=== PATIENT | female | born 1960 | race Caucasian/White ===

== ENCOUNTER 2020-06-05 09:42 | Outpatient (CLI) | payer MEDICARE, OTHER, SELFPAY ==
--- NOTE | ~2020-06-05 | CT_ITS ---
EXAMINATION: CT chest wo con DATE: 06/05/2020 10:12 INDICATION: Solitary pulmonary nodule TECHNIQUE: Computed tomography (CT) of the chest was performed without intravenous contrast. The dose -length product (DLP) was 65.93 mGy-cm. Automated exposure control and iterative reconstruction techn ique were employed. COMPARISON: 04/25/2019, 04/13/2018 FINDINGS: There are stable pulmonary nodules, the largest of which measures 4 mm in the right lower l obe. No new or suspicious pulmonary nodule is identified. Mild atelectasis is noted. There is no pleu ral effusion or pneumothorax. No pathologically enlarged thoracic lymph nodes are identified. The hea rt size is normal. There is mild thoracic spondylosis. IMPRESSION: 1. Stable pulmonary nodules, most consistent with old granulomatous disease. Reviewed, dictated and finalized at location B.
--- NOTE | ~2020-06-05 | MM_ITS ---
EXAMINATION: MM screening [facility] BI w corin HISTORY: Screening mammogram TECHNIQUE: Craniocaudal and mediolateral oblique 3-D tomosynthesis images were obtained and synthetic 2-D images were generated. CAD analysis was submitted and interpreted. COMPARISON: 04/20/2019, 05/13/2017, 03/09/2015 bilateral digital screening mammogram examinations BREAST PARENCHYMAL COMPOSITION: There are scattered areas of fibroglandular density. FINDINGS: Stable mild fibroglandular asymmetry. There is no evidence of suspicious mass, calcificatio n, or architectural distortion to suggest malignancy in either breast. There has been no suspicious i nterval change. IMPRESSION: 1. No mammographic evidence of malignancy. 2. Recommend routine screening mammography in one year. BI-RADS Category 2: Benign finding(s). Reviewed, dictated and finalized at location A.
== END 2020-06-05 09:43 | disposition home or self-care (01) ==
PROVIDERS: PCP Family Medicine; Visit Provider Family Medicine
DX: Z12.31 Encounter for screening mammogram for malignant neoplasm of breast (principal); R91.8 Other nonspecific abnormal finding of lung field
CPT/HCPCS: 71250; 77063; 77067

== ENCOUNTER 2021-07-12 14:45 | Outpatient (CLI) | payer MEDICARE, OTHER, SELFPAY ==
--- NOTE | ~2021-07-12 | MM_ITS ---
EXAMINATION: MM screening [facility] BI w corin HISTORY: Screening TECHNIQUE: Craniocaudal and mediolateral oblique 3-D tomosynthesis images were obtained and synthetic 2-D images were generated. CAD analysis was submitted and interpreted. COMPARISON: Comparison to multiple prior studies sequentially, with oldest reviewed study dated 12/2012. BREAST PARENCHYMAL COMPOSITION: There are scattered areas of fibroglandular density. FINDINGS: There is no evidence of suspicious mass, calcification, or architectural distortion to sugg est malignancy in either breast. There has been no suspicious interval change. IMPRESSION: 1. No mammographic evidence of malignancy. 2. Recommend routine screening mammography in one year. BI-RADS Category 1: Negative Reviewed, dictated and finalized at location A.
--- NOTE | ~2021-07-12 | XR_ITS ---
EXAMINATION: XR chest 2V DATE: 07/12/2021 15:55 INDICATION: Unspecified dementia without behavioral disturbance. TECHNIQUE: Frontal and lateral views of the chest were obtained. COMPARISON: Chest CT 06/05/2020 FINDINGS: There is no pneumonia, pleural effusion, or pneumothorax. The heart size is normal. IMPRESSION: 1. No acute cardiopulmonary disease. Reviewed, dictated and finalized at location A.
--- NOTE | ~2021-07-12 | MR_ITS ---
EXAMINATION: MR brain/brain stem wo con EXAM DATE: 07/12/2021 16:39 INDICATION: F03.90 - Unspecified dementia without behavioral disturbance. TECHNIQUE: Magnetic resonance imaging (MRI) of the brain/brain stem obtained without contrast. Sagitt al T1, axial diffusion, gradient echo (T2*), T1, T2, FLAIR sequences obtained. Comparison is made to prior examination from 06/14/2019. FINDINGS: There is a punctate old left caudate head lacunar infarction, new compared to previous exam ination. There are no areas of restricted diffusion to suggest acute infarction. There is no acute h emorrhage seen on the T2*, a hemosiderin sensitive sequence. No intraparenchymal brain mass. The kathleen tricles are normal in size. There are no extra-axial collections. Flow voids are seen in the cerebr al arteries on the T2-weighted sequences consistent with their expected patency. The orbits are unre markable. Soft tissue is unremarkable. IMPRESSION: 1. No acute intracranial findings. 2. Punctate old left caudate head lacunar infarction. Reviewed, dictated and finalized at location B.
--- NOTE | ~2021-07-12 | DEXA_ITS ---
Bone Density Report Name: Joanie Dominguez Age: 60 Sex: Female Ethnicity: White Date of : 1960 Indication: postmenopausal; height loss; Referring Provider: Peter Fagan Study: Bone densitometry was performed. Exam Date: July 12, 2021 Accession number: [id number] Bone Density: Region BMD T-score Z-score Classification AP Spine (L1, L2) 0.972 -0.1 1.4 Normal Femoral Neck (Left) 0.778 -0.6 0.7 Normal Total Hip (Left) 0.977 0.3 1.3 Normal Total Hip Bilateral Avg 0.995 0.5 1.5 Normal Femoral Neck (Right) 0.788 -0.6 0.8 Normal Total Hip (Right) 1.011 0.6 1.6 Normal World Health Organization criteria for BMD impression classify patients as: Normal (T-score at or above -1.0), Osteopenia (T-score between -1.0 and -2.5), or Osteoporosis (T-score at or below -2.5). 10-year Fracture Risk: FRAX not reported because: All T-scores for Spine Total, Hip Total, Femoral Neck at or above -1.0 Clinical Information Provided by Patient: Patient maximum height was 64 Menopause Age: 49 Onset of menses at age 12 Number of children 0 Impression: The patient has normal bone mass. Discussion: BONE DENSITY IS ABOVE THE MINIMUM DESIRABLE LEVEL AT ALL SKELETAL SITES TESTED. This patient?s bone mineral density is above the minimum desirable level (T-score -1.0 or better) at all sites measured. The patient should follow a healthful lifestyle (good nutrition with adequate calcium and vitamin D, and appropriate weight-bearing exercise). Follow-Up: Consider repeating this study in 5 years or sooner if there is some new clinical indication. Reported by: MARYELLEN on 07/12/2021 3:11:00 PM. Reviewed, dictated and finalized at location ACielo MOSER
== END 2021-07-12 14:46 | disposition home or self-care (01) ==
PROVIDERS: PCP Family Medicine; Visit Provider Physician Assistant Medical
DX: Z12.31 Encounter for screening mammogram for malignant neoplasm of breast (principal); Z78.0 Asymptomatic menopausal state; F03.90 Unspecified dementia, unspecified severity, without behavioral disturbance, psychotic disturbance, mood disturbance, and anxiety; Z86.73 Personal history of transient ischemic attack (TIA), and cerebral infarction without residual deficits
CPT/HCPCS: 70551; 71046; 77063; 77067; 77080

== ENCOUNTER → 2023-11-10 15:53 | Outpatient (CLI) | payer MEDICARE, OTHER, SELFPAY ==
--- NOTE | ~2023-11-10 | XR_ITS ---
EXAM: XR pelvis 1-2V DATE: 11/10/2023 16:17 HISTORY: M54.42 - Lumbago with sciatica, left side . COMPARISON: None available. FINDINGS: Normal mineralization. No fracture or dislocation. No lytic or blastic lesion. Lumbar dege nerative disc disease. Mild bilateral superior hip joint space narrowing. The SI joints and pubic sym physis are unremarkable. No erosion or periosteal change. Soft tissues within normal limits. IMPRESSION: Mild bilateral hip osteoarthritis. Reviewed, dictated and finalized at location K. INSPECTOR
--- NOTE | ~2023-11-10 | XR_ITS ---
EXAM: XR lumbar spine 2-3V DATE: 11/10/2023 16:17 HISTORY: M54.42 - Lumbago with sciatica, left side . COMPARISON: None available. FINDINGS: 5 nonrib-bearing lumbar-type vertebral bodies. Pedicles intact. Normal vertebral body alig nment. Vertebral body heights preserved. Multilevel disc space height with marginal osteophytosis, se rebeka at L3-4. Multilevel moderate and severe degrees of mid and lower lumbar facet hypertrophy and sc lerosis. No fracture or dislocation. IMPRESSION: Severe degenerative disc disease at L3-4. Multilevel lower lumbar facet arthropathy. Reviewed, dictated and finalized at location K. INSPECTOR IMPRESSION: Severe degenerative disc disease at L3-4. Multilevel lower lumbar f acet arthropathy.
== END ==
PROVIDERS: PCP Chiropractor; Visit Provider Family Medicine
DX: M54.42 Lumbago with sciatica, left side (principal); M51.36 Other intervertebral disc degeneration, lumbar region; M54.41 Lumbago with sciatica, right side; M16.0 Bilateral primary osteoarthritis of hip
CPT/HCPCS: 72100; 72170

== ENCOUNTER 2024-01-13 13:51 | Outpatient (CLI) | payer MEDICARE, OTHER, SELFPAY ==
--- NOTE | ~2024-01-13 | MR_ITS ---
MRI of the lumbar spine Clinical History: Right sciatica Technique: Axial T2-weighted images, and sagittal T1-weighted, T2-weighted, and T2 fat-sat images wer e acquired. Findings: There is no fracture or subluxation of the lumbar spine. Vertebral bodies maintain normal h eight and alignment. No suspicious bone marrow signal abnormality seen. At L1-L2, there is minimal disc bulge. There is moderate facet arthropathy. No central canal stenosis or neural foraminal narrowing seen. At L2-L3, there is minimal disc bulge and moderate facet arthropathy. No central canal stenosis. Ther e is mild bilateral neural foraminal narrowing. L3-L4, there is advanced degenerative disc narrowing. There is mild disc bulge and moderate facet art hropathy. There is mild to moderate central canal stenosis. There is moderate bilateral neural forami nal narrowing. At L4-L5, there is mild degenerative disc narrowing. There is diffuse disc bulge with superimposed ce ntral disc extrusion. There is advanced facet arthropathy. There is severe spinal canal stenosis/thec al sac compression at this level. There is moderate bilateral neural foraminal narrowing, right worse than left. At L5-S1, there is minimal disc bulge and mild facet arthropathy. No central canal stenosis. There is mild bilateral neural foraminal narrowing. Paravertebral soft tissues are unremarkable. Impression: Advanced degenerative spondylosis, worst at L4-L5, as detailed above. Reviewed, dictated and finalized at [facility]. TER SUPERVISOR Impression: Advanced degenerative spondylosis, worst at L4-L5, as detailed above.
== END 2024-01-13 13:52 ==
PROVIDERS: PCP Family Medicine; Referring Provider Chiropractor; Visit Provider Nurse Practitioner Family
DX: M54.41 Lumbago with sciatica, right side (principal); M54.42 Lumbago with sciatica, left side; M47.896 Other spondylosis, lumbar region
CPT/HCPCS: 72148

== ENCOUNTER 2024-04-26 10:36 | Outpatient (CLI) | payer MEDICARE, OTHER, SELFPAY ==
--- NOTE | ~2024-04-26 | XR_ITS ---
SINGLE AP VIEW PELVIS Ordering provider: Emi Dean MD History: . SACROILITIS . Comparison: November 10, 2023 FINDINGS: BONES: No acute fracture or dislocation. HIP JOINT SPACES: Normal. SACROILIAC JOINT SPACES/LUMBAR SPINE: The sacroiliac joint spaces are normal. Mild degenerative coe es of the visualized lower lumbar spine. PUBIC SYMPHYSIS: Normal. SOFT TISSUES: Normal. Calcification in the right side of the pelvis is unchanged. IMPRESSION: No acute osseous abnormality pelvis. Reviewed, dictated and finalized at location A.
== END 2024-04-26 10:37 ==
PROVIDERS: PCP Physical Medicine & Rehabilitation Pain Medicine; Visit Provider Physical Medicine & Rehabilitation Pain Medicine
DX: M46.1 Sacroiliitis, not elsewhere classified (principal)
CPT/HCPCS: 72190

== ENCOUNTER 2025-04-12 10:28 | Outpatient (CLI) | payer MEDICARE, OTHER, SELFPAY ==
--- NOTE | ~2025-04-12 | MM_ITS ---
EXAMINATION: MM screening [facility] BI w corin HISTORY: Screening TECHNIQUE: Craniocaudal and mediolateral oblique 3-D tomosynthesis images were obtained and synthetic 2-D images were generated. CAD analysis was submitted and interpreted. COMPARISON: 07/12/2021 through 05/10/2013 BREAST PARENCHYMAL COMPOSITION: Not dense: There are scattered areas of fibroglandular density. FINDINGS: There is no evidence of suspicious mass, calcification, or architectural distortion to sug gest malignancy in either breast. There has been no suspicious interval change. IMPRESSION: 1. No mammographic evidence of malignancy. 2. Recommend routine screening mammography in one year. BI-RADS Category 1: Negative Reviewed, dictated and finalized at location B.
--- OUTSIDE RECORDS SUMMARY | 2025-04-12 10:33 | XMS_ITS | Clinical Summary ---
[facility] Address [address] Attn: Epic Prelude ADT LISA GARCÍA [id number] Care Team Providers Care Cage Loader Name Role Phone Unavailable Primary Care Provider Unavailabl e Allergies No known active allergies Medications meclizine (ANTIVERT) 12.5 mg tablet Take 1 Tablet (12.5 mg) by mouth 3 times daily as needed for dizziness. 30 Tablet 2 3:58 PM CDT 07/24/20 22 Active ketorolac tromethamine (ACULAR) 0.5 % solution Instill 1 drop into the surgical eye 4 times per day starting 2 days prior to surgery, continuing for 2 weeks after surgery. 5 mL 1 3 10:35 AM MANAGER 11/22/19 23 Active ofloxacin (OCUFLOX) 0.3 % solution Instill 1 drop into the surgical eye 3 times per day starting 2 days prior to surgery, continuing for 1 week after surgery. 5 mL 1 3 10:35 AM MANAGER 11/22/19 23 Active prednisoLONE acetate (PRED FORTE) 1 % suspension Instill 1 drop into the surgical eye 3 times per day starting after surgery, continuing for 3 weeks 5 mL 1 3 10:35 AM MANAGER 11/22/19 23 Active amLODIPine (NORVASC) 5 mg tablet Take 1 Tablet (5 mg) by mouth daily. 90 Tablet 3 3 5:51 PM CDT 04/07/20 23 Active famotidine (PEPCID) 40 mg tablet Take 1 Tablet (40 mg) by mouth daily at bedtime. 90 Tablet 3 3 7:32 PM CDT 05/28/20 23 Active pantoprazole (PROTONIX) 40 mg Tablet, Delayed Release (E.C.) TAKE ONE TABLET BY MOUTH EVERY MORNING 90 Tablet 1 3 3:11 PM MANAGER 07/06/20 23 Active propranoloL (INDERAL) 20 mg tablet Take 1 Tablet (20 mg) by mouth every 12 hours. 60 Tablet 2 3 2:50 PM MANAGER 10/28/20 23 Active propranoloL (INDERAL LA) 60 mg Long Acting 24 hour capsule Take 1 Capsule (60 mg) by mouth daily. 90 Capsule 4 3:32 PM MANAGER 11/27/19 24 Active LORazepam (ATIVAN) 1 mg tablet LEONOR 1 TABLET BY MOUTH 1 HOUR PRIOR TO MRI; MAY REPEAT 15-30 MINUTES BEFORE MRI 5 Tablet 4 2:00 PM MANAGER 01/05/20 24 Active predniSONE (DELTASONE) 50 mg tablet Take 1 Tablet (50 mg) by mouth daily. 5 Tablet 4 2:00 PM MANAGER 01/05/20 24 Active tiZANidine (ZANAFLEX) 4 mg Tablet Take 1 Tablet (4 mg) by mouth 2 times daily as needed. 60 Tablet 4 7:05 PM CDT 03/07/20 24 Active amoxicillin (AMOXIL) 500 mg capsule Take 1 capsule by mouth every 12 hours 30 Capsule 4 4:45 PM CDT 03/28/20 24 Active hydrocortisone (PROCTOZONE-HC) 2.5 % cream with perineal applicator APPLY RECTALLY 2-3 TIMES DAILY NEEDED FOR PAIN. 28 Gram 1 4 5:35 PM [facility] 09/21/20 24 Active sulfacetamide (BLEPH-10) 10 % solution Administer 2 Drops in both eyes every 4 hours. 15 mL 1 5 5:59 PM MANAGER 11/10/19 25 Active tobramycin (TOBREX) 0.3 % solution Administer 1 Drop in both eyes every 4 hours. 5 mL 1 5 12:31 PM MANAGER 11/11/19 25 Active methylPREDNISolo ne (MEDROL DOSPACK) 4 mg Tablets, Dose Pack Take as directed on package 21 Each 5 5:34 PM MANAGER 11/14/19 25 Active simvastatin (ZOCOR) 10 mg tablet TAKE ONE TABLET BY MOUTH ONCE DAILY 90 Tablet 1 5 1:23 PM CDT 11/22/19 25 Active zolpidem (AMBIEN) 10 mg tablet Take 1 tablet by mouth every night as needed for sleep 30 Tablet 5 5 10:14 AM MANAGER 11/22/19 25 Active cetirizine (ZyrTEC) 10 mg tablet Take 1 Tablet (10 mg) by mouth 1 time daily as needed for allergy symptoms 90 Tablet 1 5 11:24 AM CDT 12/27/19 25 Active pantoprazole (PROTONIX) 40 mg Tablet, Delayed Release (E.C.) TAKE ONE TABLET BY MOUTH EVERY MORNING 90 Tablet 1 5 2:01 PM MANAGER 01/06/20 25 Active hydrocortisone (PROCTOZONE-HC) 2.5 % cream with perineal applicator APPLY RECTALLY 2-3 TIMES DAILY NEEDED FOR PAIN. 28 Gram 1 5 4:18 PM CDT 01/21/20 25 Active propranoloL (INDERAL LA) 60 mg Long Acting 24 hour capsule Take 1 Capsule (60 mg) by mouth daily. 90 Capsule 1 5 4:31 PM CDT 03/03/20 25 Active meloxicam (MOBIC) 7.5 mg tablet Take 2 Tablets (15 mg) by mouth daily. 180 Tablet 1 5 11:24 AM CDT 04/05/20 25 Active meloxicam (MOBIC) 7.5 mg tablet Take 1 Tablet (7.5 mg) by mouth daily. 90 Tablet 1 5 1:12 PM CDT 09/30/20 24 025 Discontinued Encounters Date Type Department Care Team Description 04/04/2025 External Device Data STL ABSTRACTION Provider, Abstract 03/29/2025 External Device Data ST[facility] ABSTRACTION Provider, Abstract 03/28/2025 External Device Data ST[facility] ABSTRACTION Provider, Abstract 01/25/2025 External Device Data [facility] ABSTRACTION Provider, Abstract 01/17/2025 External Device Data [facility] ABSTRACTION Provider, Abstract 01/17/2025 External Device Data ST[facility] ABSTRACTION Provider, Abstract 01/14/2025 External Device Data ST[facility] ABSTRACTION Provider, Abstract 01/13/2025 External Device Data STL ABSTRACTION Provider, Abstract 01/11/2025 External Device Data STL ABSTRACTION Provider, Abstract from Last 3 Months Social History Tobacco Use Types Packs/Day Years Used Date Smoking Tobacco: Never Assessed Comments Unknown Sex and Gender Information Value Date Recorded Sex Assigned at Not on file Legal Sex Female 3:29 AM MANAGER Gender Identity Not on file Sexual Orientation Not on file Plan of Treatment Health Maintenance Due Date Last Done Comments DTAP/TDAP/TD VACCINES (1 - Tdap) 1978 BREAST CANCER SCREENING 1999 COLORECTAL SCREENING 2004 Colorectal Cancer Screening 2004 FIT-DNA Q 3 years 2004 FIT/FOBT Q 1 year 2004 Flex Sig/CT Colonography Q 5 years 2004 PNEUMOCOCCAL VACCINE 50+ YEARS (1 of 1 - PCV) 12/12/19 10 ZOSTER VACCINE (1 of 2) 2009 INFLUENZA VACCINE (#1) 2024 OSTEOPOROSIS SCREENING 2024 RSV VACCINE (60+ or ) (1 - 1-dose 75+ series) 2034 Insurance RX [employer] (INTERNAL) [facility]
--- OUTSIDE RECORDS SUMMARY | 2025-04-12 10:33 | XMS_ITS | Encounter Summary ---
Author Organization [employer] Address [address] [place] [address] Care Team Providers Care High Court Justice Name Role Phone Unavailable Primary Care Provider Unavailabl e Encounter Details Date Type Department Care Team (Latest Contact Info) Description 09/13/1999 Outpatient Historical HIS LAB,ADMIT 2L (Excluded Provider) [place] [address] [address] [place], [place] [id number] Depressive disorder, not elsewhere classified (Primary Dx) Social History Tobacco Use Types Packs/Day Years Used Date Smoking Tobacco: Never Assessed Comments Unknown Sex and Gender Information Value Date Recorded Sex Assigned at Not on file Legal Sex Female 3:29 AM RISK CONTROL MANAGER Gender Identity Not on file Sexual Orientation Not on file documented as of this encounter Plan of Treatment Not on file documented as of this encounter Visit Diagnoses Diagnosis Depressive disorder, not elsewhere classified- Primary documented in this encounter
--- OUTSIDE RECORDS SUMMARY | 2025-04-12 10:33 | XMS_ITS | Encounter Summary ---
Author Organization [employer] Address [address] [place] [address] Care Team Providers Care Cattle Producers Name Role Phone Unavailable Primary Care Provider Unavailabl e Encounter Details Date Type Department Care Team (Late st Contact Info) Description 09/13/1999 Outpatient Historical Division of Neurology [address] [address] (Excluded Provider) [place] [address] [facility] [address] [place] [address] Social History Tobacco Use Types Packs/Day Years Used Date Smoking Tobacco: Never Assessed Comments Unknown Sex and Gender Information Value Date Recorded Sex Assigned at Not on file Legal Sex Female 3:29 AM CHEMICAL DETECTION EXPERT Gender Identity Not on file Sexual Orientation Not on file documented as of this encounter Plan of Treatment Not on file documented as of this encounter Visit Diagnoses Not on filedocumented in this encounter
--- OUTSIDE RECORDS SUMMARY | 2025-04-12 10:33 | XMS_ITS | Encounter Summary ---
Author Organization [employer] Address [address] [place] [address] Care Team Providers Care Civil Rights Investigator Name Role Phone Unavailable Primary Care Provider Unavailabl e Encounter Details Date Type Department Care Team (Late st Contact Info) Description 10/16/1999 Outpatient Historical Division of Neurology [address] [address] (Excluded Provider) [place] [address] [facility] [address] [place] [address] Social History Tobacco Use Types Packs/Day Years Used Date Smoking Tobacco: Never Assessed Comments Unknown Sex and Gender Information Value Date Recorded Sex Assigned at Not on file Legal Sex Female 3:29 AM TIME CLOCK INSPECTOR Gender Identity Not on file Sexual Orientation Not on file documented as of this encounter Plan of Treatment Not on file documented as of this encounter Visit Diagnoses Not on filedocumented in this encounter
--- OUTSIDE RECORDS SUMMARY | 2025-04-12 10:33 | XMS_ITS | Encounter Summary ---
Author Organization [employer] Address [address] [place] [address] Care Team Providers Care Research Fellow Name Role Phone Unavailable Primary Care Provider Unavailabl e Encounter Details Date Type Department Care Team (Late st Contact Info) Description 11/20/1999 Outpatient Historical Division [facility]rology [address] [address] (Excluded Provider) [place] [address] [facility] [address] [place] [address] Social History Tobacco Use Types Packs/Day Years Used Date Smoking Tobacco: Never Assessed Comments Unknown Sex and Gender Information Value Date Recorded Sex Assigned at Not on file Legal Sex Female 3:29 AM LINOLEUM FLOOR LAYER Gender Identity Not on file Sexual Orientation Not on file documented as of this encounter Plan of Treatment Not on file documented as of this encounter Visit Diagnoses Not on filedocumented in this encounter
== END 2025-04-12 10:29 | disposition home or self-care (01) ==
LOC: ANHIMG 10:30
PROVIDERS: PCP Family Medicine; Visit Provider Family Medicine
DX: Z12.31 Encounter for screening mammogram for malignant neoplasm of breast (principal)
CPT/HCPCS: 77063; 77067

== ENCOUNTER 2025-05-18 09:52 | Outpatient (CLI) | payer MEDICARE, OTHER, SELFPAY ==
--- NOTE | ~2025-05-18 | NM_ITS ---
EXAMINATION: NM dieter stress w perfusion DATE: 05/18/2025 12:03 INDICATION: Shortness of breath TECHNIQUE: Rest images were obtained following intravenous administration of 9.4 mCi Tc99m tetrofosmi n (Myoview). The patient was infused intravenously with Lexiscan (Regadenoson). Then, 28.5 mCi Tc99m tetrofosmin (Myoview) was administered intravenously, and stress images were obtained. Data was recon structed into short axis and horizontal and vertical long axis SPECT images. Gated SPECT images were also obtained. COMPARISON: None. FINDINGS: There is no definite reversible or fixed perfusion abnormality to suggest ischemia or infar ction. There is normal left ventricular chamber size, wall motion and ejection fraction. Left ventr icular ejection fraction measures 63%. IMPRESSION: 1. Normal myocardial perfusion at rest and during stress. 2. Left ventricular ejection fraction measuring 63%. Reviewed, dictated and finalized at location A.
--- OUTSIDE RECORDS SUMMARY | 2025-05-18 09:57 | XMS_ITS | Encounter Summary ---
Author Organization [facility] Address [address] [place] [address] Care Team Providers Care Rn Paralegal Name Role Phone Unavailable Primary Care Provider Unavailabl e Encounter Details Date Type Department Care Team (Late st Contact Info) Description 10/16/1999 Outpatient Historical Division of [facility]rology [address] [address] (Excluded Provider) [place] [address] [facility] [address] [place] [address] Social History Tobacco Use Types Packs/Day Years Used Date Smoking Tobacco: Never Assessed Comments Unknown Sex and Gender Information Value Date Recorded Sex Assigned at Not on file Legal Sex Female 3:29 AM LEATHER SPONGER Gender Identity Not on file Sexual Orientation Not on file documented as of this encounter Plan of Treatment Not on file documented as of this encounter Visit Diagnoses Not on filedocumented in this encounter
--- OUTSIDE RECORDS SUMMARY | 2025-05-18 09:57 | XMS_ITS | Encounter Summary ---
Author Organization [employer] Address [address] [place] [address] Care Team Providers Care Cream Maker Name Role Phone Unavailable Primary Care Provider Unavailabl e Encounter Details Date Type Department Care Team (Late st Contact Info) Description 09/13/1999 Outpatient Historical Division of Neurology [address] [address] (Excluded [place] [address] [facility] [address] [place] [address] Social History Tobacco Use Types Packs/Day Years Used Date Smoking Tobacco: Never Assessed Comments Unknown Sex and Gender Information Value Date Recorded Sex Assigned at Not on file Legal Sex Female 3:29 AM ANGLE SHEARER Gender Identity Not on file Sexual Orientation Not on file documented as of this encounter Plan of Treatment Not on file documented as of this encounter Visit Diagnoses Not on filedocumented in this encounter
--- OUTSIDE RECORDS SUMMARY | 2025-05-18 09:57 | XMS_ITS | Encounter Summary ---
Author Organization [employer] Address [address] [place] [address] Care Team Providers Care Wellhead Pumper Name Role Phone Unavailable Primary Care Provider Unavailabl e Encounter Details Date Type Department Care Team (Latest Contact Info) Description 09/13/1999 Outpatient Historical HIS LAB,ADMIT 2L (Excluded Provider) [place] [address] [facility] [address] [place], [place] [phone] Depressive disorder, not elsewhere classified (Primary Dx) Social History Tobacco Use Types Packs/Day Years Used Date Smoking Tobacco: Never Assessed Comments Unknown Sex and Gender Information Value Date Recorded Sex Assigned at Not on file Legal Sex Female 3:29 AM RESOURCING CONSULTANT Gender Identity Not on file Sexual Orientation Not on file documented as of this encounter Plan of Treatment Not on file documented as of this encounter Visit Diagnoses Diagnosis Depressive disorder, not elsewhere classified- Primary documented in this encounter
--- OUTSIDE RECORDS SUMMARY | 2025-05-18 09:57 | XMS_ITS | Encounter Summary ---
Author Organization [employer] Address [address] [place] [address] Care Team Providers Care Back Winder Name Role Phone Unavailable Primary Care Provider Unavailabl e Encounter Details Date Type Department Care Team (Late st Contact Info) Description 11/20/1999 Outpatient [facility] [address] [facility] [address] (Excluded Provider) [place] [address] [facility] [address] [place] [address] Social History Tobacco Use Types Packs/Day Years Used Date Smoking Tobacco: Never Assessed Comments Unknown Sex and Gender Information Value Date Recorded Sex Assigned at Not on file Legal Sex Female 3:29 AM DATA ENTRY REPRESENTATIVE Gender Identity Not on file Sexual Orientation Not on file documented as of this encounter Plan of Treatment Not on file documented as of this encounter Visit Diagnoses Not on filedocumented in this encounter
--- OUTSIDE RECORDS SUMMARY | 2025-05-18 09:57 | XMS_ITS | Clinical Summary ---
[facility] Organization [facility] Address [address] [facility] Attn: Epic Prelude ADT LISA GARCÍA [id number] Care Team Providers Care Family Readiness Support Assistant Name Role Phone Unavailable Primary Care Provider Unavailabl e Allergies No known active allergies Medications meclizine (ANTIVERT) 12.5 mg tablet Take 1 Tablet (12.5 mg) by mouth 3 times daily as needed for dizziness. 30 Tablet 07/24/2022 3:58 PM CDT 2 Active ketorolac tromethamine (ACULAR) 0.5 % solution Instill 1 drop into the surgical eye 4 times per day starting 2 days prior to surgery, continuing for 2 weeks after surgery. 5 mL 1 11/25/2022 10:35 AM PUMPER HELPER 3 Active ofloxacin (OCUFLOX) 0.3 % solution Instill 1 drop into the surgical eye 3 times per day starting 2 days prior to surgery, continuing for 1 week after surgery. 5 mL 1 11/25/2022 10:35 AM PUMPER HELPER 3 Active prednisoLONE acetate (PRED FORTE) 1 % suspension Instill 1 drop into the surgical eye 3 times per day starting after surgery, continuing for 3 weeks 5 mL 1 11/25/2022 10:35 AM PUMPER HELPER 3 Active amLODIPine (NORVASC) 5 mg tablet Take 1 Tablet (5 mg) by mouth daily. 90 Tablet 3 04/07/2023 5:51 PM CDT 3 Active famotidine (PEPCID) 40 mg tablet Take 1 Tablet (40 mg) by mouth daily at bedtime. 90 Tablet 3 05/29/2023 7:32 PM CDT 3 Active pantoprazole (PROTONIX) 40 mg Tablet, Delayed Release (E.C.) TAKE ONE TABLET BY MOUTH EVERY MORNING 90 Tablet 1 10/05/2023 3:11 PM PUMPER HELPER 3 Active propranoloL (INDERAL) 20 mg tablet Take 1 Tablet (20 mg) by mouth every 12 hours. 60 Tablet 2 10/28/2023 2:50 PM PUMPER HELPER 3 Active propranoloL (INDERAL LA) 60 mg Long Acting 24 hour capsule Take 1 Capsule (60 mg) by mouth daily. 90 Capsule 11/27/2023 3:32 PM PUMPER HELPER 4 Active LORazepam (ATIVAN) 1 mg tablet LEONOR 1 TABLET BY MOUTH 1 HOUR PRIOR TO MRI; MAY REPEAT 15-30 MINUTES BEFORE MRI 5 Tablet 01/06/2024 2:00 PM PUMPER HELPER 4 Active predniSONE (DELTASONE) 50 mg tablet Take 1 Tablet (50 mg) by mouth daily. 5 Tablet 01/06/2024 2:00 PM PUMPER HELPER 4 Active tiZANidine (ZANAFLEX) 4 mg Tablet Take 1 Tablet (4 mg) by mouth 2 times daily as needed. 60 Tablet 03/09/2024 7:05 PM CDT 4 Active amoxicillin (AMOXIL) 500 mg capsule Take 1 capsule by mouth every 12 hours 30 Capsule 03/28/2024 4:45 PM CDT 4 Active hydrocortisone (PROCTOZONE-HC) 2.5 % cream with perineal applicator APPLY RECTALLY 2-3 TIMES DAILY NEEDED FOR PAIN. 28 Gram 1 09/21/2024 5:35 PM PUMPER HELPER 4 Active sulfacetamide (BLEPH-10) 10 % solution Administer 2 Drops in both eyes every 4 hours. 15 mL 1 11/10/2024 5:59 PM PUMPER HELPER 5 Active tobramycin (TOBREX) 0.3 % solution Administer 1 Drop in both eyes every 4 hours. 5 mL 1 11/12/2024 12:31 PM PUMPER HELPER 5 Active methylPREDNISolon e (MEDROL DOSPACK) 4 mg Tablets, Dose Pack Take as directed on package 21 Each 11/15/2024 5:34 PM PUMPER HELPER 5 Active simvastatin (ZOCOR) 10 mg tablet TAKE ONE TABLET BY MOUTH ONCE DAILY 90 Tablet 1 02/22/2025 1:23 PM CDT 5 Active zolpidem (AMBIEN) 10 mg tablet Take 1 tablet by mouth every night as needed for sleep 30 Tablet 5 11/23/2024 10:14 AM PUMPER HELPER 5 Active cetirizine (ZyrTEC) 10 mg tablet Take 1 Tablet (10 mg) by mouth 1 time daily as needed for allergy symptoms 90 Tablet 1 04/05/2025 11:24 AM CDT 5 Active pantoprazole (PROTONIX) 40 mg Tablet, Delayed Release (E.C.) TAKE ONE TABLET BY MOUTH EVERY MORNING 90 Tablet 1 04/12/2025 12:54 PM CDT 5 Active hydrocortisone (PROCTOZONE-HC) 2.5 % cream with perineal applicator APPLY RECTALLY 2-3 TIMES DAILY NEEDED FOR PAIN. 28 Gram 1 01/20/2025 4:18 PM CDT 5 Active propranoloL (INDERAL LA) 60 mg Long Acting 24 hour capsule Take 1 Capsule (60 mg) by mouth daily. 90 Capsule 1 03/07/2025 4:31 PM CDT 5 Active meloxicam (MOBIC) 7.5 mg tablet Take 2 Tablets (15 mg) by mouth daily. 180 Tablet 1 04/05/2025 11:24 AM CDT 5 Active albuterol sulfate HFA 90 mcg/actuation aerosol inhaler Take 2 Puffs by inhalation every 4 hours as needed for shortness of breath or wheezing 8.5 Gram 2 05/01/2025 1:21 PM CDT 5 Active tiZANidine (ZANAFLEX) 4 mg Capsule Take 1 Capsule (4 mg) by mouth 2 times daily as needed for muscle spasticity. 60 Capsule 05/01/2025 1:21 PM CDT 5 Active predniSONE (DELTASONE) 50 mg tablet Take 1 Tablet (50 mg) by mouth daily. 7 Tablet 05/01/2025 1:21 PM CDT 5 Active Encounters Date Type Department Care Team Description 05/02/2025 External Device Data [facility] ABSTRACTION Provider, Abstract 05/02/2025 External Device Data [facility] ABSTRACTION Provider, Abstract 04/04/2025 External Device Data [facility] ABSTRACTION Provider, Abstract 03/29/2025 External Device Data [facility] ABSTRACTION Provider, Abstract 03/28/2025 External Device Data [facility] ABSTRACTION Provider, Abstract from Last 3 Months Social History Tobacco Use Types Packs/Day Years Used Date Smoking Tobacco: Never Assessed Comments Unknown Sex and Gender Information Value Date Recorded Sex Assigned at Not on file Legal Sex Female 3:29 AM PUMPER HELPER Gender Identity Not on file Sexual Orientation [...] 10 ZOSTER VACCINE (1 of 2) 2009 OSTEOPOROSIS SCREENING 2024 INFLUENZA VACCINE (#1) 2025 RSV VACCINE (60+ or ) (1 - 1-dose 75+ series) 2034 Insurance RX [employer] ([employer]NAL) [facility]
--- OUTSIDE RECORDS SUMMARY | 2025-05-18 09:57 | XMS_ITS | Clinical Summary ---
Author Organization [facility] Address [address] [place] [id number] Care Team Providers Care Tool Die Maker Name Role Phone Jamal Cano MD Primary Care Provider [phone] Allergies No known active allergies Medications zolpidem 10 MG tablet nightly as needed. 10/07/2021 Active venlafaxine XR 37.5 MG 24 hr capsule Take 37.5 mg by mouth daily. Active pantoprazole EC 40 MG tablet Take 40 mg by mouth daily. Active felodipine ER 5 MG 24 hr tablet Take 5 mg by mouth daily. Active simvastatin 10 MG tablet Take 10 mg by mouth nightly at bedtime. Active Active Problems No known active problems Immunizations Immunization Administration Dates Next Due PFIZER COVID-19 (ORIGINAL FO RMULATION, PURPLE CAP) mRNA, LNP-S, PF, 30 MCG/0.3 ML DOSE 10/28/2021,02/09/2021,01/18/2021 Family History Medical History Relation Comments Heart Disease Father Relation Status Comments Father Social History Tobacco Use Types Packs/Day Years Used Date Smoking Tobacco: Former Smokeless Tobacco: Never Alcohol Use Standard Drinks/Week Comments Never 0 (1 standard drink = 0.6 oz pur e alcohol) Comments No Sex and Gender Information Value Date Recorded Sex Assigned at Not on file Legal Sex Female 8:47 AM ORE TESTER Gender Identity Not on file Sexual Orientation Not on file Last Filed Vital Signs Vital Sign Reading Time Taken Comments Blood Pressure 117/76 11/27/2021 11:35 AM ORE TESTER Pulse 66 11/27/2021 11:35 AM ORE TESTER Temperature 36.3 C (97.3 F) 11/27/2021 11:27 AM ORE TESTER Respiratory Rate 18 11/27/2021 11:35 AM ORE TESTER Oxygen Saturation 99% 11/27/2021 11:35 AM ORE TESTER Inhaled Oxygen Concentration - - Weight 72.6 kg (160 lb) 11/25/2021 8:16 AM ORE TESTER Height 162.6 cm (5' 4) 11/25/2021 8:16 AM ORE TESTER Body Mass Index 27.46 11/25/2021 8:16 AM ORE TESTER Plan of Treatment Health Maintenance Due Date Last Done Comments Hepatitis C 1977 DTaP, Tdap and Td Vaccines ( 1 - Tdap) 1978 Mammogram Screening 1999 Pneumococcal Vaccine: 50+ Years (1 of 1 - PCV) 2009 Zoster Vaccines (1 of 2) 2009 COVID-19 Vaccine ( - 2023-2 5 season) 2024 10/28/2021, 02/09/2021, 01/18/2021 Dexa Scan (General) 2024 Colorectal Cancer Screening Colonoscopy (10 Years) 11/27/2031 11/27/2021, 11/27/2021 RSV Immunization or 60+ Years (1 - 1-dose 75+ series) 2034 Meningococcal B Vaccine Aged Out No l onger eligible based on patient's age to complete this topic Meningococcal Vaccine Aged Out No suzie king eligible based on patient's age to complete this topic RSV Immunizations Under 20 Months Aged Out No longer eligible b ased on patient's age to complete this topic Procedures Procedure Name Priority Date/Time Associated Diagnosis Comments COLONOSCOPY Routine 11/27/2021 9:52 AM ORE TESTER from Last 3 Months or Most Recently Relevant to Health Maintenance Insurance MEDICARE [employer] Care Teams Tool Die Maker Relationship Specialty Start Date End Date Jamal Cano MD PCP - General FAMILY PRACTICE 11/27/21
--- NOTE | 2025-05-18 09:58 | EST_ITS ---
Patient Info Name: Joanie Dominguez Age: 64 years : 1960 Gender: Female Ht: 63 in Wt: 170 lbs BSA: 1.88 m2 Exam Date: 05/18/2025 9:58 AM Patient Status: O Admit Date: 05/18/2025 Exam Type: CA stress test treadmill w NM A nuclear stress test was performed. Staff Referring Physician: Park Lopez Attending Provider: Park Lopez Exercise Technologist: Lashanda Ingram Exercise Physician: Kieran Reyes DO Summary 1. 1. Negative Levi exercise stress test for ischemic ST changes by ECG criteria. 2. 2. Good functional capacity, achieving 10 METs of workload. 3. 3. Baseline hypertension with hypertensive response to exercise. 4. 4. Appropriate HR response to exercise. 5. 5. Appropriate HR recovery at 1 minute post exercise. 6. 6. Nuclear scan to follow and will be reported separately. Please correlate with it. 7. 7. Patient informed of the above results. Protocol: Levi Stress ECG Details Stage: REST Duration (min): 0 min : 58 sec Speed (mph): 0.0 Grade (%): 0 HR (bpm): 64 SBP (mmHg): 145 DBP (mmHg): 92 METS: --- Stage: REST Duration (min): 20 min : 46 sec Speed (mph): 0.0 Grade (%): 0 HR (bpm): 65 SBP (mmHg): 145 DBP (mmHg): 92 METS: --- Stage: STAGE 1 Duration (min): 1 min : 0 sec Speed (mph): 1.7 Grade (%): 10 HR (bpm): 87 SBP (mmHg): 145 DBP (mmHg): 92 METS: --- Stage: STAGE 1 Duration (min): 2 min : 0 sec Speed (mph): 1.7 Grade (%): 10 HR (bpm): 100 SBP (mmHg): 145 DBP (mmHg): 92 METS: --- Stage: STAGE 1 Duration (min): 3 min : 0 sec Speed (mph): 1.7 Grade (%): 10 HR (bpm): 100 SBP (mmHg): 202 DBP (mmHg): 75 METS: --- Stage: STAGE 2 Duration (min): 1 min : 0 sec Speed (mph): 2.5 Grade (%): 12 HR (bpm): 108 SBP (mmHg): 202 DBP (mmHg): 75 METS: --- Stage: STAGE 2 Duration (min): 2 min : 0 sec Speed (mph): 2.5 Grade (%): 12 HR (bpm): 118 SBP (mmHg): 212 DBP (mmHg): 77 METS: --- Stage: STAGE 2 Duration (min): 3 min : 0 sec Speed (mph): 2.5 Grade (%): 12 HR (bpm): 121 SBP (mmHg): 212 DBP (mmHg): 77 METS: --- Stage: STAGE 3 Duration (min): 1 min : 0 sec Speed (mph): 3.4 Grade (%): 14 HR (bpm): 131 SBP (mmHg): 224 DBP (mmHg): 86 METS: --- Stage: STAGE 3 Duration (min): 2 min : 0 sec Speed (mph): 3.4 Grade (%): 14 HR (bpm): 139 SBP (mmHg): 224 DBP (mmHg): 86 METS: --- Stage: STAGE 3 Duration (min): 2 min : 20 sec Speed (mph): 3.4 Grade (%): 14 HR (bpm): 143 SBP (mmHg): 224 DBP (mmHg): 86 METS: --- Stage: RECOVERY Duration (min): 0 min : 39 sec Speed (mph): 0.0 Grade (%): 0 HR (bpm): 132 SBP (mmHg): 240 DBP (mmHg): 90 METS: --- Stage: RECOVERY Duration (min): 1 min : 39 sec Speed (mph): 0.0 Grade (%): 0 HR (bpm): 102 SBP (mmHg): 260 DBP (mmHg): 108 METS: --- Stage: RECOVERY Duration (min): 2 min : 39 sec Speed (mph): 0.0 Grade (%): 0 HR (bpm): 91 SBP (mmHg): 260 DBP (mmHg): 108 METS: --- Stage: RECOVERY Duration (min): 3 min : 39 sec Speed (mph): 0.0 Grade (%): 0 HR (bpm): 82 SBP (mmHg): 245 DBP (mmHg): 101 METS: --- Stage: RECOVERY Duration (min): 4 min : 39 sec Speed (mph): 0.0 Grade (%): 0 HR (bpm): 81 SBP (mmHg): 245 DBP (mmHg): 101 METS: --- Stage: RECOVERY Duration (min): 5 min : 39 sec Speed (mph): 0.0 Grade (%): 0 HR (bpm): 78 SBP (mmHg): 179 DBP (mmHg): 97 METS: --- Stage: RECOVERY Duration (min): 6 min : 39 sec Speed (mph): 0.0 Grade (%): 0 HR (bpm): 79 SBP (mmHg): 179 DBP (mmHg): 97 METS: --- Stage: RECOVERY Duration (min): 7 min : 5 sec Speed (mph): 0.0 Grade (%): 0 HR (bpm): 78 SBP (mmHg): 140 DBP (mmHg): 92 METS: --- Rest HR: 65 bpm Peak HR: 143 bpm Rest Sys BP: 145 mmHg Peak Sys BP: 260 mmHg Max Pred HR: 155 bpm % Max Pred HR: 92 % Target HR: 132 bpm Max RPP: 37,180 bpm*mmHg Goyal Score: 3 BP Response: Patient exhibited a hypertensive response with stress Termination Reason: Reached target heart rate or workload Cardiac Symptoms: Shortness of breath Max ST Seg Deviation: -1.00 mm Total Time: 8 min : 20 sec Rest Mcneal BP: 92 mmHg Peak Mcneal BP: 108 mmHg Angina Score: None Total METS: 10.3 Resting ECG Sinus rhythm. Stress ECG No ST changes. Arrhythmias None. Report Signatures
== END 2025-05-18 09:53 | disposition home or self-care (01) ==
PROVIDERS: PCP Family Medicine; Visit Provider Nurse Practitioner Family
DX: R06.02 Shortness of breath (principal); R42 Dizziness and giddiness
CPT/HCPCS: 78452; 93017; A9502